=== PATIENT | female | born 1950 | race Two or more races ===

== ENCOUNTER 2025-07-17 21:34 | Inpatient (IN) | payer OTHER ==
[~2025-07-17] VITALS: Ht 165.1 cm; Wt 78.6 kg
[2025-07-17 22:15] VITALS: BP 164/63; TEMP 97.9; O2SAT 95
[2025-07-17] MEDS ORDERED: ACETAMINOPHEN 325 MG TABLET PO PRN (22:30)
[2025-07-17] MEDS ORDERED: MORPHINE SULFATE INJ 2 MG/ML DISP.SYRIN IV PRN (22:30)
[2025-07-17] MEDS ORDERED: MAGNESIUM HYDROXIDE 30 ML UDC PO PRN (22:30)
[2025-07-17] MEDS ORDERED: MAG HYDROX/AL HYDROX/SIMETH 30 ML UDC PO PRN (22:30)
[2025-07-17] MEDS ORDERED: ONDANSETRON HCL/PF 4 MG/2 ML VIAL IVP PRN (22:30)
[2025-07-17 23:19] LABS: PLATELET COUNT (AUTO) 111 K/uL (150-450); RED BLOOD CELL COUNT(AUTO) 3.50 MIL/uL (4.0-5.2); RED CELL DISTRIBUTION WIDTH 17.0 % (11.5-15.0); WHITE BLOOD COUNT (AUTO) 6.8 K/uL (4.3-11.0)
[2025-07-17 23:30] LABS: CALCIUM, SERUM 8.4 mg/dL (8.5-10.1); CREATININE 0.6 mg/dL (0.6-1.3); PHOSPHORUS 2.8 mg/dL (2.5-4.9); SODIUM SERUM 140.0 mmol/L (136-145); UREA NITROGEN, BLOOD 19.0 mg/dL (7-18)
[2025-07-18] MEDS: IV NS 0.9% 1,000 ML IV PRN (00:46)
[2025-07-18] MEDS: ENOXAPARIN SODIUM 30 MG/0.3 ML DISP.SYRIN SQ SCH (01:05)
[2025-07-18 04:00] VITALS: BP 150/57; TEMP 98.1; O2SAT 93
[2025-07-18 07:41] LABS: PLATELET COUNT (AUTO) 108 K/uL (150-450); RED BLOOD CELL COUNT(AUTO) 3.54 MIL/uL (4.0-5.2); RED CELL DISTRIBUTION WIDTH 16.4 % (11.5-15.0); WHITE BLOOD COUNT (AUTO) 7.4 K/uL (4.3-11.0)
[2025-07-18 08:00] VITALS: BP 135/66; TEMP 98.1; O2SAT 95
[2025-07-18] MEDS: PANTOPRAZOLE 40 MG VIAL IV SCH (08:03)
[2025-07-18] MEDS ORDERED: FURO20TA4 PO (08:30)
[2025-07-18] MEDS ORDERED: GABA300C PO (08:30)
[2025-07-18] MEDS ORDERED: WARF-58 PO (08:30)
[2025-07-18] MEDS ORDERED: DIGOXIN PO (08:30)
[2025-07-18] MEDS ORDERED: ROSU10TA2 PO (08:30)
[2025-07-18] MEDS ORDERED: METO25TA4 PO (08:30)
[2025-07-18 08:31] LABS: CALCIUM, SERUM 8.4 mg/dL (8.5-10.1); CREATININE 0.6 mg/dL (0.6-1.3); PHOSPHORUS 2.4 mg/dL (2.5-4.9); SODIUM SERUM 141.0 mmol/L (136-145); UREA NITROGEN, BLOOD 16.0 mg/dL (7-18)
[2025-07-18 09:13] LABS: LDL 59.0 mg/dL (0-99)
[2025-07-18] MEDS: MUPIROCIN OINT 2% 22 GM TUBE TP SCH (11:05)
[2025-07-18 11:32] VITALS: BP 132/62; TEMP 97.7; O2SAT 95
[2025-07-18 13:41] LABS: INR 1.43 (0.91-1.10)
[2025-07-18 15:26] LABS: APPEARANCE,URINE CLEAR (CLEAR); BLOOD, URINE 1+ Ery/uL (NEGATIVE); LEUKOCYTE ESTERASE ,URINE NEGATIVE (NEGATIVE); NITRITE, URINE NEGATIVE (NEGATIVE); UGLUCOSE NEGATIVE (NEGATIVE)
[2025-07-18] MEDS: K PHOS NEUTRAL 250 MG TABLET PO ONE (15:32)
[2025-07-18 15:54] LABS: ADD URINE CULTURE NO; SQUAMOUS EPITHELIAL CELL,UR Moderate /HPF (None Seen)
[2025-07-18 16:00] VITALS: BP 154/71; TEMP 98.4; O2SAT 95
[2025-07-18] MEDS: METOPROLOL SUCCINATE 25 MG TAB.SR.24H PO SCH (17:24)
[2025-07-18] MEDS: DIGOXIN 0.125 MG TABLET PO SCH (21:12)
[2025-07-18] MEDS: ATORVASTATIN 40 MG TABLET PO SCH (21:13)
[2025-07-18 21:18] VITALS: BP 133/60; TEMP 98.4; O2SAT 96
[2025-07-19 07:50] LABS: PLATELET COUNT (AUTO) 127 K/uL (150-450); RED BLOOD CELL COUNT(AUTO) 3.66 MIL/uL (4.0-5.2); RED CELL DISTRIBUTION WIDTH 16.2 % (11.5-15.0); WHITE BLOOD COUNT (AUTO) 5.9 K/uL (4.3-11.0)
[2025-07-19 08:03] LABS: CALCIUM, SERUM 8.6 mg/dL (8.5-10.1); CREATININE 0.5 mg/dL (0.6-1.3); SODIUM SERUM 142.0 mmol/L (136-145); UREA NITROGEN, BLOOD 14.0 mg/dL (7-18)
[2025-07-19 08:14] LABS: INR 1.2 (0.91-1.10)
[2025-07-19] MEDS: PANTOPRAZOLE 40 MG TABLET.DR PO SCH (08:35)
[2025-07-19] MEDS: GABAPENTIN 300 MG CAPSULE PO SCH (08:35)
[2025-07-19] MEDS: FUROSEMIDE 20 MG TABLET PO SCH (08:35)
[2025-07-19] MEDS: WARFARIN SODIUM 5 MG TABLET PO SCH (08:40)
[2025-07-19 11:08] VITALS: BP 164/72; TEMP 97.7; O2SAT 96
== END 2025-07-19 14:45 | disposition home or self-care (01) | DRG 439 ==
LOC: TELE 22:10 → MED 07-18 14:10
PROVIDERS: ADMIT Nurse Practitioner Family; ATTEND Nurse Practitioner Acute Care
DX: K85.90 Acute pancreatitis without necrosis or infection, unspecified (principal); D68.59 Other primary thrombophilia; I50.32 Chronic diastolic (congestive) heart failure; I11.0 Hypertensive heart disease with heart failure; Z79.01 Long term (current) use of anticoagulants; E66.9 Obesity, unspecified; I73.9 Peripheral vascular disease, unspecified; D53.9 Nutritional anemia, unspecified; I48.20 Chronic atrial fibrillation, unspecified; E78.5 Hyperlipidemia, unspecified; I25.10 Atherosclerotic heart disease of native coronary artery without angina pectoris; Z86.73 Personal history of transient ischemic attack (TIA), and cerebral infarction without residual deficits; Z95.1 Presence of aortocoronary bypass graft; S91.301A Unspecified open wound, right foot, initial encounter; X58.XXXA Exposure to other specified factors, initial encounter; Y93.9 Activity, unspecified; Y92.009 Unspecified place in unspecified non-institutional (private) residence as the place of occurrence of the external cause; Z95.0 Presence of cardiac pacemaker; Z74.09 Other reduced mobility; S91.302A Unspecified open wound, left foot, initial encounter
CPT/HCPCS: 36415; 80048-TC; 80061-TC; 80162-TC; 81001; 82040-TC; 83690-TC; 83735-TC; 84100-TC; 85025-TC; 85610-TC; 87081-TC; A4223; A6253; A6403; G0378; J1650; J2470; J7030